=== PATIENT | female | born 1970 | race Caucasian/White ===

== ENCOUNTER → 2024-02-19 14:27 | Outpatient (REF) | payer BC, SELFPAY | LOC: RAD 14:27 | PROVIDERS: ATTENDING PHYSICIAN Nurse Practitioner Family | DX: R07.81 Pleurodynia (principal) | CPT/HCPCS: 71101 ==

== ENCOUNTER → 2024-07-20 08:45 | Outpatient (REF) | payer BC, SELFPAY | LOC: HWRAD 08:45 | PROVIDERS: ATTENDING PHYSICIAN Family Medicine | DX: R39.15 Urgency of urination (principal); R39.89 Other symptoms and signs involving the genitourinary system | CPT/HCPCS: 76770 ==

== ENCOUNTER → 2025-01-28 17:25 | Outpatient (REF) | payer BC, SELFPAY | LOC: WDC 17:25 | PROVIDERS: ATTENDING PHYSICIAN Obstetrics & Gynecology; FAMILY PHYSICIAN Family Medicine | DX: Z12.31 Encounter for screening mammogram for malignant neoplasm of breast (principal) | CPT/HCPCS: 77063; 77067 ==